=== PATIENT | female | born 1940 | race Two or more races ===

== ENCOUNTER 2017-04-02 06:08 | Day surgery (SDC) | payer MEDICARE ==
--- NOTE | 2017-04-01 16:31 | Pre-op HX & Phy Repo 2 SIG ---
DATE OF ADMISSION: 04/02/2017 DATE OF SURGERY: 04/02/2017. PREOPERATIVE DIAGNOSIS: Dense macular pucker, left eye with retinal thickening. BRIEF NOTE: This is the first [place] admission for this patient, who is a very nice 77-year-old lady complained of decreased vision in the left eye. PAST OCULAR HISTORY: Remarkable for diabetic retinopathy, glaucoma and prior cataract surgery. She has been treated for macular edema with limited success. PAST MEDICAL HISTORY: Remarkable for diabetes. She is on Humalog 100 on a daily basis. ALLERGIES: She has no allergies. PHYSICAL EXAMINATION: Best vision was 20/50 in the right eye and 20/70 in the left with pressures of 15. The anterior segment showed posterior chamber lens in good position. The right eye showed mild diabetic macular edema with faint epiretinal membrane. The left showed a fairly dense membrane with thickening of the retina. There was also evidence of background retinopathy. General physical examination be done by Dr. Torres. ASSESSMENT: Dense epiretinal membrane left eye retina associated with edema. PLAN: The plan is to perform a pars plana vitrectomy with ICG and work Kenalog assisted peeling of the pucker underlying the membrane. The risks and benefits of surgery have been gone over with the patient with potential for infection, hemorrhage, glaucoma, remote possibility of loss of the eye. The risk of anesthesia was discussed. The patient understands and consents to the surgery, which will be performed on tomorrow morning. Javan Zamora M.D. DR: AUNG JOB#: [id number] CC:
[2017-04-02] VITALS (8 sets, daily range): BP systolic 141–156; BP diastolic 74–90
[~2017-04-02] VITALS: Ht 162.6 cm; Wt 67.6 kg
[~2017-04-02 06:08] MED LIST: ASPIRIN-LOW81 MG ORAL; Avastin 10mg Inj IVITRE ONE; CALCIUM500 M3 PO; CENTRUM SILVER1 EAC4 PO; FAMOTIDINE40 MG ORAL; GABAPENTIN300 MG ORAL; HUMULIN N100 UNIT/1 SUBQ; HUMULIN R100 UNIT/1 SUBQ; TRAMADOL HCL50 MG ORAL
[2017-04-02] MEDS ORDERED: Gatifloxacin Opth Solution 0.5% ONE (06:44)
[2017-04-02] MEDS ORDERED: Flurbiprofen 0.03% Opth Sol 2.5ml ONE (06:44)
[2017-04-02] MEDS ORDERED: Cyclopentolate 1% Opth Sol ONE (06:44)
[2017-04-02] MEDS ORDERED: Phenylephrine 2.5% Op Soln ONE (06:56)
[2017-04-02] MEDS ORDERED: Pred Forte 1% Opth Susp 1ml LEFT EYE SCH (07:00)
[2017-04-02] MEDS: Cyclopentolate 1% Opth Sol LEFT EYE SCH ×3 (07:00→07:13)
[2017-04-02] MEDS: Phenylephrine 2.5% Op Soln LEFT EYE SCH ×3 (07:00→07:14)
[2017-04-02] MEDS: Gatifloxacin Opth Solution 0.5% LEFT EYE SCH ×3 (07:00→07:14)
[2017-04-02] MEDS: Flurbiprofen 0.03% Opth Sol 2.5ml LEFT EYE SCH ×3 (07:00→07:13)
--- NOTE | 2017-04-02 07:06 | Anethesia Preoperative Eval ---
Anesthesia Pre-op PMH/ROS General Date of Evaluation: Apr 02, 2017 Anesthesiologist: Norris ASA Score: ASA 3 Mallampati Score Class I : Soft palate, uvula, fauces, pillars visible Class II: Soft palate, uvula, fauces visible Class III: Soft palate, base of uvula visible Class IV: Only hard plate visible Mallampati Classification: Class II Surgeon: Sera Diagnosis: Left eye macular pucker Surgical Procedure: Left eye vitrectomy Anesthesia History: none Family History: no anesthesia problems Allergies: Coded Allergies: No Known Allergies (Unverified , 12/19/15) Medications: see eMAR Past Medical History Cardiovascular: Reports: CAD - CABG x2, HTN, other - HLD, Denies: NE, arrhythmia, valve dz Pulmonary: Denies: COPD, JOSHUA, asthma, other Gastrointestinal/Genitourinary: Reports: CRI, GERD, Denies: ESRD, other Neurologic/Psychiatric: Denies: CVA, TIA, dementia, depression/anxiety, other Endocrine: Reports: DM, Denies: hypothyroidism, other, steroids HEENT: Denies: FALSE PASS (L), FALSE PASS (R), cataract (L), cataract (R), glaucoma, other Hematology/Immune: Reports: anemia, Denies: DVT, bleeding disorder, other Musculoskeletal/Integumentary: Reports: DJD, OA, Denies: DDD, RA, edema, other PSxH Narrative: bilateral cataract, CABG x2, lap appy, MARLENY Anesthesia Pre-op Phys. Exam Physician Exam see chart Constitutional: NAD Cardiovascular: RRR Respiratory: CTA Airway Exam Mallampati Score: Class II MO: limited ROM: limited Anesthesia Pre-op A/P Labs see chart Risk Assessment & Plan Assessment: ASA III Plan: MAC Status Change Before Surgery: No Pre-Antibiotics Drug: N/A GUZMAN PARKS M.D. Apr 02, 2017 07:06
[2017-04-02] MEDS ORDERED: LOPRESSOR25 M1 ORAL (07:19)
[2017-04-02] MEDS ORDERED: FAMOTIDINE40 MG ORAL (07:20)
[2017-04-02] MEDS ORDERED: LORATADINE10 M1 PO (07:20)
[2017-04-02 07:50] LABS: BASOPHILS % (AUTO) 0.8 % (0.0-2.0); EOSINOPHILS % (AUTO) 4.6 % (0.0-3.0); LYMPHOCYTES % (AUTO) 37.6 % (20.0-45.0); MEAN CORPUSCULAR HEMOGLOBIN 29.2 PG (27.0-31.0); MEAN CORPUSCULAR HGB CONC 32.2 G/DL (32.0-36.0); MEAN CORPUSCULAR VOLUME 91 FL (80-99); MONOCYTES % (AUTO) 9.9 % (1.0-10.0); PLATELET COUNT 115 K/UL (150-450); RED BLOOD COUNT 4.88 M/UL (4.20-5.40); RED CELL DISTRIBUTION WIDTH 12.9 % (11.6-14.8); WHITE BLOOD COUNT 6.9 K/UL (4.8-10.8)
[2017-04-02] MEDS ORDERED: Indocyanine Green 25mg Inj INJ ONE (08:00)
[2017-04-02 08:04] LABS: ANION GAP 14 (5-15); CALCIUM 9.6 mg/dL (8.6-10.2); CARBON DIOXIDE 25 mEQ/L (20-30); CHLORIDE 97 mEQ/L (98-107); HEMOLYSIS 85; POTASSIUM 4.3 mEQ/L (3.4-4.9); SODIUM 136 mEQ/L (135-145)
[2017-04-02] MEDS ORDERED: Lidocaine 1% MPF 10mg/ml 5ml ONE (09:30)
[2017-04-02] MEDS ORDERED: Propofol 10mg/ml 20ml IV ONE (09:30)
[2017-04-02] MEDS ORDERED: Sterile Water Irrig 1000ml IRRIG ONE (09:30)
[2017-04-02] MEDS ORDERED: fentaNYL 100 mcg/2 mL IV ONE (09:30)
[2017-04-02] MEDS ORDERED: LR 1000ml ONE (09:30)
--- NOTE | 2017-04-02 09:48 | Pre-Procedure Note/Attestation ---
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 I attest that, if there was a reasonable possibility of needing a blood transfusion, the patient (or the patient's legal hotel services sales representative) was given the [place] Department [employer] Services standardized written summary, pursuant to the [place] Blood Safety Act ([place] Health and Safety Code # 1645, as amended). I attest that I re-evaluated the patient just prior to the surgery and that there has been no change in the patient's H&P, except as documented below: ARNULFO RABAGO Apr 02, 2017 09:48
[2017-04-02] MEDS ORDERED: Norco 5mg/325mg tab ORAL PRN (10:00)
[2017-04-02] MEDS ORDERED: LR 1000ml 1,000 ML IVLG SCH (10:53)
--- NOTE | 2017-04-02 10:54 | Immediate Post-Op Evaluation ---
Immediate Post-Op Evalulation Immediate Post-Op Evalulation Procedure: Left eye vitrectomny Date of Evaluation: Apr 02, 2017 Time of Evaluation: 10:56 IV Fluids: 600 Blood Products: 0 Estimated Blood Loss: 0 Urinary Output: 0 Blood Pressure Systolic: 148 Blood Pressure Diastolic: 86 Pulse Rate: 66 Respiratory Rate: 16 O2 Sat by Pulse Oximetry: 99 Temperature (Fahrenheit): 97 Pain Score (1-10): 0 Nausea: No Vomiting: No Complications 0 Patient Status: awake, reacts, patent, none Hydration Status: adequate Drug: N/A GUZMAN PARKS M.D. Apr 02, 2017 10:54
[2017-04-02] MEDS ORDERED: DiphenhydrAMINE 50mg/ml Inj IVP PRN (11:00)
--- NOTE | 2017-04-02 11:21 | Brief Operative Note ---
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
--- NOTE | 2017-04-02 11:45 | Pre-op HX & Phy Repo 2 SIG ---
DATE OF ADMISSION: 04/02/2017 PRESURGICAL INTERNAL MEDICINE HISTORY AND PHYSICAL REASON FOR EVALUATION: I was asked by Dr. Javan Zamora to see this is a 77-year-old female, who is going for elective surgery on the left eye. The patient was examined. Chart was reviewed. The patient has a macular pucker left eye. See History and Physical by Dr. Zamora. PAST MEDICAL HISTORY AND REVIEW OF SYSTEMS: Remarkable for heart attack 7 years ago in 2009, insulin-dependent diabetes mellitus for 20 years. No history of stroke. Denies history of hypertension. No history of GI bleeding. No respiratory problem, asthma or bronchitis. Denies history of renal failure. No thyroid problem. No history of anemia. PAST SURGICAL HISTORY: Tubal ligation about 40 years ago. MEDICATIONS: Present medications includes aspirin 81 mg, insulin twice a day, nifedipine, metoprolol 25 mg daily, gabapentin 300 mg three times a day, famotidine 40 mg twice a day, tramadol 50 mg three times a day, multivitamin, Centrum Silver 10 mg daily. ALLERGIES: Not known. HABITS: Denies tobacco, alcohol, or street drug use. FAMILY HISTORY: Mother of old age and father from heart attack. PHYSICAL EXAMINATION: GENERAL: The patient is alert, has a right ear hearing impairment. The patient's weight is 143 pounds and 5 feet 4 inches tall. VITAL SIGNS: Blood pressure 145/72, temperature 97.1 degrees, pulse 73 and regular, respirations 18, and O2 saturation 97% on room air. SKIN: Clear and dry. No rashes. No ulcerations. LYMPHATICS: Lymph nodes not enlarged. HEENT: Head, normocephalic. Eyes, full description per Dr. Javan Zamora. Ear, no discharge. Impairment of hearing from the right ear. Mouth, clear and moist without dentures upper and lower. NECK: Supple. No jugular venous distention. Carotids artery +2. No mass palpable. CHEST: No deformity or asymmetry. LUNGS: Clear. No rales or rhonchi. No wheezing. HEART: Sinus rhythm. No murmur. No S3 or S4. No ectopy. ABDOMEN: Soft. No rebound. EXTREMITIES: No edema. No calf tenderness. No edema or deformity. GENITOURINARY: No dysuria. No tenderness. No CVA tenderness. No edema. NEUROLOGIC: No tremor. No nystagmus. No asymmetry. LABORATORY AND DIAGNOSTIC DATA: Cardiogram, normal sinus rhythm, 68 per minute, anterior DE old. Laboratory, blood sugar 121. The patient did not eat or drink from 8 p.m. last night. Rest of the laboratory pending. IMPRESSION: 1. Macular pucker, left eye. 2. Insulin-dependent diabetes mellitus, control. 3. Myocardial infarction old in 2009. 4. Peripheral diabetic neuropathy of the feet. PLAN: Pars plana vitrectomy, 23 G membrane peeling, left eye per Dr. Javan Zamora. CONCLUSION: The patient has history of heart attack and she has insulin-dependent diabetes mellitus for 20 years. Her blood sugar controlled. The patient is on insulin, last dose yesterday. The patient's vital signs stable. Last p.o. intake 8 p.m. yesterday. The patient's condition optimized for surgery. Thank you very much, Dr. Zamora, for privilege to participate presurgical care of this interesting patient. Jammie Torres M.D. DR: Ben JOB#: [id number] CC:
--- NOTE | 2017-04-02 12:01 | 48 Hour Post Anesthesia Eval ---
Post Anesthesia Evaluation Procedure: Left eye vitrectomny Date of Evaluation: Apr 02, 2017 Time of Evaluation: 12:00 Blood Pressure Systolic: 154 0: 77 Pulse Rate: 67 Respiratory Rate: 17 Temperature (Fahrenheit): 97.8 O2 Sat by Pulse Oximetry: 100 Airway: patent Nausea: No Vomiting: No Pain Intensity: 0 Hydration Status: adequate Cardiopulmonary Status: at baseline Mental Status/LOC: patient returned to baseline Post-Anesthesia Complications: 0 Follow-up care needed: ready to discharge GUZMAN PARKS M.D. Apr 02, 2017 12:01
[2017-04-02] MEDS ORDERED: BSS 500ml btl ONE (15:26)
[2017-04-02] MEDS ORDERED: Povidone-Iodine 5% opth solution ONE (15:26)
[2017-04-02] MEDS ORDERED: Tetracaine 0.5% Opth Soln ONE (15:26)
[2017-04-02] MEDS ORDERED: Dexamethasone 4mg/ml vial ONE (15:26)
[2017-04-02] MEDS ORDERED: Maxitrol Opth Oint 3.5gm ONE (15:26)
[2017-04-02] MEDS ORDERED: EPINEPHrine 1mg/1ml Amp ONE (15:27)
[2017-04-02] MEDS ORDERED: Lidocaine 2% MPF 5ml Vial INJ ONE (15:27)
[2017-04-02] MEDS ORDERED: BSS 15ml BTL ONE (15:27)
[2017-04-02] MEDS ORDERED: Bupivacaine 0.75% 30ml vial INJ ONE (15:27)
[2017-04-02] MEDS ORDERED: Sodium Hyaluronate 10 mg/ml 0.85ml ONE (15:28)
[2017-04-02] MEDS ORDERED: Kenalog-10 5ml Inj ONE (15:28)
--- NOTE | 2017-04-03 16:45 | Operative Note - Dictated ---
DATE OF OPERATION: 04/02/2017 PREOPERATIVE DIAGNOSIS: Taut posterior hyaloid with macular edema, left eye. POSTOPERATIVE DIAGNOSIS: Taut posterior hyaloid with macular edema, left eye. PROCEDURES PERFORMED: 1. Pars plana vitrectomy. 2. Membrane peel. 3. Kenalog injection. 4. Endolaser. 5. Avastin injection, left eye. SURGEON: Javan Zamora M.D. CONTACT LENS CURVE GRINDER: None. ANESTHESIA: Local with sedation. ANESTHESIOLOGIST: Dr. Veronica Pagan. JUSTIFICATION FOR SURGERY: This is a 77-year-old lady with a long history of diabetes developed diminished vision in the left eye. She was noted to have significant thickening of the retina as well as macular edema. This was associated with an epiretinal membrane. She was admitted for repair. BRIEF NOTE: The patient was brought to the operating room and placed on operating room table in supine position. After time-out was performed and agreed upon by the staff and initial monitoring secured by Dr. Pagan, retrobulbar and Van Lint blocks were given in the standard way to the left eye. The lid speculum was then inserted. Using a 23-gauge trocar system, cannulas were placed in all except infranasal quadrant. Infusion was secured inferotemporally. Vitrectomy was begun posterior to the iris plane. A central core vitrectomy was done followed by peripheral vitrectomy leaving a small vitreous skirt. Kenalog was used to aid in visualization of the vitreous. The posterior hyaloid was attached and this was gently engaged with suction and removed. There was still noted to be wrinkling and it was felt that the thickened internal limiting lamina was the cause. A posterior viewing lens was inserted and 2 drops of ICG solution were used to stain the internal limiting lamina. This membrane was engaged just superior and temporal to the macula. The membrane was gently elevated and removed in a circular manner 360 degrees leaving roughly 2 disc diameter opening in the posterior hyaloid. Several areas of leakage and hemorrhage were treated with focal laser. Additional laser was applied in the mid periphery for a total of 527 lesions with the endolaser. The instruments were removed from the eye superiorly rather and the superonasal sclerotomy was closed with 8-0 Vicryl suture. The supratemporal sclerotomy was noted to be self-sealing. Through the infusion line, Avastin 1.25 mg was injected. The eye was reinflated. Prior to removal of all sclerotomy, scleral depression had been done and no peripheral breaks, tears, or detachments were seen. The infusion cannula was removed and the sclerotomy was also closed with 8-0 Vicryl suture leaving the eye normotensive. Subconjunctival Decadron and gentamicin were then injected and Maxitrol and atropine ointments were instilled. The eye was patched and shielded and the patient was taken to recovery in excellent condition. There were no complications. Javan Zamora M.D. DR: HONG JOB#: [id number] CC: Javan Zamora M.D.; Fax#: [phone]
--- NOTE | 2017-04-04 19:13 | Cardiology Report ---
APPROVED REPORT EKG Measurement Heart [id number] PA [id number] Normal sinus rhythm Possible Anterior infarct, age undetermined Abnormal ECG
[2018-04-02] MEDS ORDERED: Phenylephrine 2.5% Op Soln LEFT EYE SCH (07:00)
== END 2017-04-02 12:25 | disposition home or self-care (01) ==
LOC: SUR 06:08
DX: H35.372 Puckering of macula, left eye (principal); E10.311 Type 1 diabetes mellitus with unspecified diabetic retinopathy with macular edema; Z79.4 Long term (current) use of insulin; E10.40 Type 1 diabetes mellitus with diabetic neuropathy, unspecified; H40.9 Unspecified glaucoma; I25.10 Atherosclerotic heart disease of native coronary artery without angina pectoris; Z95.1 Presence of aortocoronary bypass graft; I25.2 Old myocardial infarction; I12.9 Hypertensive chronic kidney disease with stage 1 through stage 4 chronic kidney disease, or unspecified chronic kidney disease; N18.9 Chronic kidney disease, unspecified; E78.5 Hyperlipidemia, unspecified; K21.9 Gastro-esophageal reflux disease without esophagitis; D64.9 Anemia, unspecified; M19.90 Unspecified osteoarthritis, unspecified site; Z90.49 Acquired absence of other specified parts of digestive tract; Z90.710 Acquired absence of both cervix and uterus
CPT/HCPCS: 36415; 67042; 80048; 82962; 85025; 93005; J0171; J1100; J2704; J3010; J3301; J3470; J3490; J7120; J9035; 94003; 94150